=== PATIENT | female | born 1965 | race Caucasian/White ===

== ENCOUNTER → 2020-12-13 10:36 | Outpatient (BNVA) | payer BC, SELFPAY | PROVIDERS: PCP Nurse Practitioner Family; Visit Provider Internal Medicine Cardiovascular Disease | DX: I50.9 Heart failure, unspecified (principal) | CPT/HCPCS: 80053; 83735; 83880 ==

== ENCOUNTER 2024-08-17 10:46 | Outpatient (CLI) | payer OTHER, SELFPAY ==
[2024-08-17 11:17] VITALS: PULSE 101; RESP 18; O2SAT 89
[2024-08-17] MEDS: albuterol 2.5 mg/3 mL Neb INHALATION (11:17)
[2024-08-17 11:28] LABS: ABG PCO2 49.5 mmHg (35-45); ABG PH Result 7.45 (7.35-7.45); Alveolar-Arterial Oxygen Gradi 6.1 mmHg (5-10); Arterial Blood Gas Hematocrit 40.9 % (37-47); Base Excess ABG 8.8 mmol/L (-2.0-2.0); Blood Gas Allen Test Pos; Blood Gas Operator Identificat CAK; Blood Gas Sample Site Brachial, left; Blood Gas Sample Type Arterial; Carboxyhemoglobin 8.3 %THgb (0.4-20.1); HCO3 ABG 34.3 mmol/L (22-26); HGB O2 Sat 79.1 % (95-100); Ionized Calcium Level - ABG 1.2 mmol/L (1.1-1.4); Methemoglobin 0.3 % (0.4-1.5); Oxygen Device ROOM AIR; Oxygen Saturation ABG 86.5; PO2 ABG 43.9 mmHg (80.0-100.0); Total Hemoglobin 13.3 g/dL (12-16)
== END 2024-08-17 10:47 | disposition home or self-care (01) ==
LOC: RT 10:48
PROVIDERS: PCP Nurse Practitioner Family; Visit Provider Thoracic Surgery (Cardiothoracic Vascular Surgery)
DX: Z02.71 Encounter for disability determination (principal); J44.9 Chronic obstructive pulmonary disease, unspecified
CPT/HCPCS: 36600; 80051; 82330; 82805; 94060; J7613